=== PATIENT | female | born 1945 | race Caucasian/White ===

== ENCOUNTER → 2017-02-12 | Outpatient (CLI) | payer MEDICARE, OTHER ==
[~2017-02-12] MED LIST: ATOR40TA2 PO; BIOMEGA; CHOL200018 PO; CRAN500C3 PO; MULT-275 PO; OMEP20TA PO; SOTA80TA PO; WARF6TAB3 PO; WRF2.5T PO; WRF2T PO; [UNRECOGNIZED DRUG - OTHER]
--- NOTE | 2017-02-13 10:15 | Diagnostic Imaging Report ---
EXAM: Bilateral Digital Screening Mammography with computer aided detection system (CAD). DATE: February 12, 2017. COMPARISON: December 24, 2015. December 18, 2014. September 22, 2013. INDICATION: Breast cancer screening. FINDINGS: The breasts are nearly entirely fatty. There are no suspicious findings in either breast. IMPRESSION: 1. No mammographic evidence of malignancy. Recommend annual screening mammography and clinical breast exam. ACR BI-RADS Category 1: Negative. Result letter will be mailed to the patient. Note: At least 10% of breast cancer is not imaged by mammography. Dictated by: Dictated on workstation # [id number]
== END ==
LOC: RAD 10:02
PROVIDERS: ATTEND Family Medicine
DX: Z12.31 Encounter for screening mammogram for malignant neoplasm of breast (principal)